=== PATIENT | female | born 1995 | race Caucasian/White ===

== ENCOUNTER 2017-02-16 13:11 | Emergency (ER) | payer OTHER ==
[~2017-02-16] VITALS: Ht 165.1 cm; Wt 94.5 kg
[~2017-02-16 13:11] MED LIST: BACTDS PO; CEPH-443 PO; IBUP-1542 PO; PRENAT PO
[2017-02-16 13:14] VITALS: Ht 165.1 cm; Wt 94.5 kg
[2017-02-16] MEDS ORDERED: NPH10OT RIGHT EAR (14:40)
--- NOTE | 2017-02-17 08:02 | ERD ---
DATE OF SERVICE: HISTORY OF PRESENT ILLNESS: The patient is a 21-year-old female complaining of right ear pain. Pat joesph states she had some bleeding this morning. She uses Q-tips in the morning and she noticed that there was some bleeding after using the Q-tips. She has not used any medication on the site. She does not have any pain, no purulence. PAST MEDICAL HISTORY: No other medical problems. ALLERGIES: NO ALLERGIES TO MEDICATIONS. PAST SURGICAL HISTORY: Denies. SOCIAL HISTORY: Denies. REVIEW OF SYSTEMS: A 12-point review of systems was done. Refer to HPI for positives, all other sy stems negative. PHYSICAL EXAMINATION VITAL SIGNS: Temperature is 98.5, pulse 75, blood pressure is 129/75, respiratory 18, O2 sat 98% on room air. Pain intensity is 0/10. GENERAL: The patient is well-appearing, well-nourished, no acute distress. ____ HEENT: There is some friability noted to the external ear canal of the right side with no active bl eeding. No perforation noted of the TM. No mastoid tenderness. DIAGNOSIS: Right ear pain. MEDICAL DECISION MAKING: The patient has some excoriations noted to the external ear canal. I will treat with antibiotic drops to cover for possible development of otitis externa. I did not feel th at there was indication for oral antibiotics. Low suspicion for perforated TM. DISCHARGE: The patient is discharged stable. Patient is given a prescription for Cortisporin and t old to follow up with primary care within 1 to 2 days for reevaluation. The patient was told if sym ptoms progress or worsen to return to the ER. All other questions answered at time of discharge. D ischarge summary given at the time of departure. Patient understood and complied with plan. Dictated By: JORDY DORSEY for MICHELLE DOWNS/TERRA Conf#: [id number] DID#: [id number]
== END 2017-02-16 15:03 | disposition home or self-care (01) ==
LOC: FTE 13:11
DX: H92.01 Otalgia, right ear (principal)
CPT/HCPCS: 99283

== ENCOUNTER 2017-12-01 08:50 | Emergency (ER) | END 2017-12-01 12:27 | disposition home or self-care (01) ==

== ENCOUNTER 2018-04-02 12:10 | Emergency (ER) | END 2018-04-02 13:52 | disposition home or self-care (01) ==

== ENCOUNTER 2019-05-02 05:44 | Emergency (ER) | payer MEDICAID, OTHER ==
[~2019-05-02] VITALS: Ht 165.1 cm; Wt 102.0 kg
[~2019-05-02 05:44] MED LIST changes: +DIPH1TAB PO; +NPH10OT RIGHT EAR; +ONDA4TAB14 PO
[2019-05-02 05:47] VITALS: BP 129/88; PULSE 67; RESP 18; Ht 165.1 cm; Wt 102.0 kg
[2019-05-02] MEDS ORDERED: BENZ-6 PO (06:46)
[2019-05-02] MEDS ORDERED: D-ME473S2 PO (06:46)
[2019-05-02] MEDS ORDERED: NPH10OT BOTH EARS (06:46)
[2019-05-02] MEDS ORDERED: PSEU-79 PO (06:46)
--- NOTE | 2019-05-02 07:56 | ERD ---
ER Documentation Chief Complaint Chief Complaint soret throat/cough x 3 days HPI 23-year-old female presenting with a sore throat and cough x3 days. Patient has a mild runny nose. Has no fevers. Patient took Robitussin with no alleviation of symptoms. Has a dry cough and a sore throat and. Denies medical problems. NKDA. Surgical history . Social history denies ROS All systems reviewed and are negative except as per history of present illness. Medications Home Meds Active Scripts Dextromethorphan Hb-Promethazine Hcl* (Promethazine DM* Syrup) 473 Ml Syrup, 5 ML PO Q6 PRN for COUGH, #100 ML Prov:ALEX CROWLEY PA-C 05/02/19 Benzonatate* (Tessalon Perle*) 100 Mg Capsule, 100 MG PO Q8H PRN for COUGH, #30 CAP Prov:ALEX CROWLEY PA-C 05/02/19 Pseudoephedrine Hcl* (Suphedrin*) 30 Mg Tablet, 30 MG PO Q6 PRN for CONGESTION, #30 TAB Prov:ALEX CROWLEY PA-C 05/02/19 Neomycin/Polymyxin/Hydrocort* (Cortisporin* Otic) 10 Ml Susp, 4 DROP BOTH EARS QID for 7 Days, EA Prov:ALEX CROWLEY PA-C 05/02/19 Ibuprofen* (Motrin*) 600 Mg Tab, 600 MG PO Q6, #30 TAB Prov:DEVON MILLER PA-C 04/02/18 Diphenoxylate HCl/Atropine (Lomotil 2.5-0.025 mg Tablet) 1 Each Tablet, 1 TAB PO QID PRN for DIARRHEA, #10 TAB Prov:LARRY GLORIA MD 12/01/17 Ondansetron (Ondansetron Odt) 4 Mg Tab.rapdis, 4 MG PO Q6H PRN for NAUSEA AND/OR VOMITING, #10 TAB Prov:LARRY GLORIA MD 12/01/17 Neomycin/Polymyxin/Hydrocort* (Cortisporin* Otic) 10 Ml Susp, 4 DROP RIGHT EAR QID for 7 Days, EA Prov:ALEX CROWLEY PA-C 02/16/17 Cephalexin* (Keflex*) 500 Mg Capsule, 500 MG PO QID for 5 Days, CAP Prov:LARRY LUAManny Roblero ASSISTIVE TECHNOLOGY SPECIALIST 04/29/16 Ibuprofen* (Motrin*) 600 Mg Tab, 600 MG PO Q6H PRN for PAIN AND OR ELEVATED TEMP, #30 TAB Prov:JUANI LUA FELICITY Roblero ASSISTIVE TECHNOLOGY SPECIALIST 04/29/16 Sulfamethoxazole-Trimethoprim* (Bactrim* DS) 800-160 Mg Tab, 1 TAB PO BID, #14 TAB 0 Refills Prov:ROBEL WOODS PA-C 01/24/16 Reported Medications Multivit/Min/Fol Ac/Iron/Pren* ( S*) 1 Tab Tab, 1 TAB PO DAILY, TAB 05/08/15 Allergies Allergies: Coded Allergies: No Known Drug Allergies (Unverified Allergy, Unknown, 05/02/19) PMhx/Soc History of Surgery: Yes ( x2. ) Anesthesia Reaction: No Hx Neurological Disorder: No Hx Respiratory Disorders: No Hx Cardiac Disorders: No Hx Psychiatric Problems: No Hx Miscellaneous Medical Probl: No Hx Alcohol Use: No Hx Substance Use: No Hx Tobacco Use: No FmHx Family History: No diabetes, No coronary disease, No other Physical Exam Vitals Vital Signs Date Temp Pulse Resp B/P (MAP) Pulse Ox O2 O2 Flow FiO2 Time Delivery Rate 05/02/19 98.3 67 18 129/88 97 05:47 (102) Physical Exam GENERAL: The patient is well-appearing, well-nourished, in no acute distress HEENT: Atraumatic. Conjunctivae are pink. Pupils equal, round, and reactive to light. There is no scleral icterus. Tympanic membranes clear bilaterally. Oropharynx clear. NECK: C-spine is soft and supple. There is no meningismus. There is no cervical lymphadenopathy. CHEST: Clear to auscultation bilaterally. There are no rales, wheezes or rhonchi. HEART: Regular rate and rhythm. No murmurs, clicks, rubs or gallops. Procedures/MDM MDM: 23-year-old female presenting with URI findings. Patient's ear exam is concerning for otitis externa and I will treat with otic drops. I have low suspicion for meningitis or sepsis. I have low suspicion for pneumonia. Patient is discharged with strict ER precautions and told to follow-up with primary care within 1 to 2 days for close evaluation. Patient is told symptoms change or worsen to return immediately to the ER. All questions answered at discharge Departure Diagnosis: Primary Impression: URI (upper respiratory infection) Additional Impression: Otitis externa Condition: Stable Patient Instructions: Uri, Viral, No Abx (Adult), External Ear Infection (Adult) Additional Instructions: FOLLOW UP WITH YOUR PRIMARY CARE PHYSICIAN TOMORROW.Return to this facility if you are not improving as expected. ALEX CROWLEY PA-C May 02, 2019 07:56
== END 2019-05-02 07:35 | disposition home or self-care (01) ==
LOC: FTE 05:44
DX: J06.9 Acute upper respiratory infection, unspecified (principal); H60.93 Unspecified otitis externa, bilateral
CPT/HCPCS: 99283